=== PATIENT | female | born 2000 | race Two or more races ===

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

== ENCOUNTER 2025-05-19 19:33 | Emergency (ER) | payer MEDICAID ==
[~2025-05-19] VITALS: Ht 170.2 cm; Wt 65.0 kg
--- NOTE | 2025-05-19 20:27 | DVH ---
XY CHEST TWO VIEWS ROUTINE CLINICAL HISTORY: COUGH/FEVERS/SOB COMPARISON: CHEST XRAY 1 VIEW on DOS: 11/27/20 TECHNIQUE: Frontal and lateral view of the chest was obtained FINDINGS: Lines and Tubes: None Lungs: Right lower lobe infiltrate and atelectasis. Pleura: No effusion. No pneumothorax. Cardiomediastinal contours: Unremarkable Bones: No acute osseous abnormality. IMPRESSION: 1. Right lower lobe infiltrate and atelectasis.
[2025-05-19] MEDS ORDERED: PROM1SOL4 PO (21:19)
[2025-05-19] MEDS ORDERED: ALBUAER3 IN (21:19)
[2025-05-19] MEDS ORDERED: AZIT-43 PO (21:19)
--- NOTE | 2025-05-19 21:19 | ED.PDOC ---
SOB-HPI HPI Comments PT PRESENTS TO ED WITH C/C OF SOB AND FEVER X2 WEEKS. STATES SHE HAD TOOTH INFECTION AND WAS GIVEN AMOXICILLIN, BUT CONTINUES TO BE SICK WITH COUGH, SOB AND FEVER Chief Complaint: Flu like Time Seen by MD: 19:38 Primary Care Provider: CORNELIO Rivas notes: Nurses Notes, Medications, Allergies Information Source: Patient Mode of Arrival: Ambulatory Past Medical History PAST MEDICAL HISTORY: Denies Surgical History: Denies all surgeries FUSE SPOOLER History: No Pertinent FUSE SPOOLER History Family History Family History: Reviewed,noncontributory to illness Social History Smoker: Non-Smoker Alcohol: Denies ETOH Use Drugs: Denies Drug Use Lives In: Home All Other Systems: Reviewed and Negative (see hpi) Physical Exam General Appearance: No Apparent Distress, Normal HEENT: Normal ENT Inspection, Pharynx Normal, TMs Normal Neck: Full Range of Motion, Non-Tender, Normal, Normal Inspection Respiratory: Chest Non-Tender, No Accessory Muscle Use, No Respiratory Distress, Rhonchi Cardiovascular: No Edema, No JVD, No Murmur, No Gallop, Normal Peripheral Pulses, Regular Rate/Rhythm Breast Exam: Deferred Gastrointestinal: No Organomegaly, Non Tender, No Pulsatile Mass, Normal Bowel Sounds, Soft Genitalia: Deferred Pelvic: Deferred Rectal: Deferred Extremities: Normal capillary refill, No pedal edema Musculoskeletal : Apperance: Normal Neurologic: Alert, No Motor Deficits, Normal Affect, Normal Mood, No Sensory Deficits Cerebellar Function: Normal Reflexes: NOT DONE Skin: Dry, Normal Color, Warm Lymphatic: No Adenopathy Was a procedure done? Was a procedure done?: No Differential Dx Differential Diagnosis: Pneumonia, Sinusitis, Otitis Media, Peritonsillar Abscess, Peritonsillar Cellulitis, Pharyngitis, URI X-Ray, Labs, Meds, VS Vital Signs Date Time Temp Pulse Resp B/P (MAP) Pulse Ox O2 Delivery O2 Flow Rate FiO2 05/19/25 19:34 99.8 120 20 113/80 98 99.8 Current Medications Medications (Trade) Dose Ordered Sig/Peyton Route Start Time Stop Time Status Last Admin Ceftriaxone Sodium (Rocephin) 1,000 mg ONCE ONCE IM 05/19/25 21:15 05/19/25 21:16 DC 05/19/25 21:38 Dexamethasone Sodium Phosphate (Decadron Injection) 10 mg ONCE ONCE IM 05/19/25 21:15 05/19/25 21:16 DC 05/19/25 21:38 X-Ray, Labs, Meds, VS Comment Chest x-ray shows right lower lobe infiltrate likely secondary to pneumonia patient with low-grade fever x2 weeks cough we will treat. Patient given Rocephin 1 g IM and Decadron 10 mg IM. Script trial of azithromycin albuterol and cough medication. Advised take medication as prescribed side effects discussed. Advised to rest increase p.o. fluids electrolytes. Follow up with PCP in 2-3 days ER return precautions given patient indicates understanding and agrees with discharge plan of care. Time of 1ST Reevaluation: 19:38 Reevaluation 1ST: Unchanged Time of 2ND Reevaluation: 21:19 Reevaluation 2ND: Improved Patient Education/Counseling: Diagnosis, Treatment, Prognosis, Need For Follow Up Family Education/Counseling: No Family Present SEPSIS Sepsis Screen Date sepsis recognized/suspect: May 19, 2025 Time Sepsis recognized/suspect: 1933 Recent Procedure: No On Antibiotic Therapy: Yes Respiratory Rate >20: No Heart Rate >90: Yes Temp<36 C (96.8 F) or >38.3 C: No SBP <90 or MAP <65 mmHG: No New Acute Mental Status Change: No Is the patient on CPAP, BIPAP,: No Physician Orders Chest Two Views Routine (05/19/25 19:38) Vital Signs Date Time Temp Pulse Resp B/P (MAP) Pulse Ox O2 Delivery O2 Flow Rate FiO2 05/19/25 19:34 99.8 120 20 113/80 98 99.8 Medications Medications Dose Ordered Sig/Peyton Route Start Time Stop Time Status Last Admin Dose Admin Ceftriaxone Sodium 1,000 mg ONCE ONCE IM 05/19/25 21:15 05/19/25 21:16 DC 05/19/25 21:38 Dexamethasone Sodium Phosphate 10 mg ONCE ONCE IM 05/19/25 21:15 05/19/25 21:16 DC 05/19/25 21:38 Departure 1 Departure Time of Disposition: 21:16 Impression: Primary Impression: Pneumonia Qualified Codes: J18.9 - Pneumonia, unspecified organism Disposition: HOME / SELF CARE / HOMELESS Condition: Stable e-Prescriptions Albuterol Sulfate (VENTOLIN MDI) 90 Mcg Ih 90 MCG IN Q4HP PRN for 14 Days, #1 INH Inhale 1-2 puffs every 4-6 hours as needed for wheezing, cough, or shortness of breath. Prov: JONO KIM 05/19/25 Promethazine-Dm (Promethazine Dm 6.25-15 mg/5Ml) 1 Brielle Brielle 5 ML PO TID PRN for 6 Days, #90 ML Prov: JULIOJONO CLINTON 05/19/25 Azithromycin (Azithromycin) 250 Mg Tab 250 MG PO DAILY MDD 500 for 5 Days, #6 TAB 0 Refills 2 TABLETS ORALLY ON DAY ONE, THEN 1 TABLET ORALLY DAILY FOR 4 DAYS Prov: JONO KIM 05/19/25 Discharged With: Self Critical Care Note Critical Care Time?: No Stability Stability form required: No Heart Score Heart Score: Heart Score Response (Comments) Value History N/A 0 EKG N/A 0 Age <45 0 Risk Factors N/A 0 Troponin N/A 0 Total 0 JULIOJONO CLINTON May 19, 2025 21:19
[2025-05-19] MEDS: cefTRIAXone SOD 1,000 MG VL IM ONE (21:38)
[2025-05-19 22:03] VITALS: BP 129/86; PULSE 97; RESP 18; TEMP 97.8; O2SAT 98
== END 2025-05-19 21:45 | disposition home or self-care (01) ==
LOC: ER 19:33
DX: J18.9 Pneumonia, unspecified organism (principal); Z79.899 Other long term (current) drug therapy
CPT/HCPCS: 71046; 96372; 99284; J0696; J1100